=== PATIENT | female | born 1955 | race Caucasian/White ===

== ENCOUNTER 2017-11-21 09:16 | Day surgery (SDC) | payer OTHER ==
[~2017-11-21 09:16] MED LIST: LIDO GARGLE 30 ML BOTTLE ONE
[2017-11-21] MEDS: LACTATED RINGERS 1,000 ML IV ONE ×2 (09:51→12:16)
[2017-11-21] MEDS ORDERED: fentaNYL 250 MCG/5 ML VIAL IVP ONE (10:35)
[2017-11-21] MEDS ORDERED: MIDAZOLAM 2 MG/2 ML VIAL IVP ONE (10:35)
[2017-11-21] MEDS: LIDO GARGLE 30 ML BOTTLE TOP ONE (10:40)
[2017-11-21] MEDS: ONDANSETRON 4 MG/2 ML VIAL ONE (12:16)
[2017-11-21 13:43] VITALS: BP 114/78
== END 2017-11-21 09:17 | disposition home or self-care (01) ==
LOC: SDS 09:16
PROVIDERS: ATTEND Surgery
PROC: 0DB78ZX Excision of Stomach, Pylorus, Via Natural or Artificial Opening Endoscopic, Diagnostic (ICD-10-PCS; 2017-11-21)
PROC: 0DB38ZX Excision of Lower Esophagus, Via Natural or Artificial Opening Endoscopic, Diagnostic (ICD-10-PCS; 2017-11-21)
PROC: 0DBN8ZX Excision of Sigmoid Colon, Via Natural or Artificial Opening Endoscopic, Diagnostic (ICD-10-PCS; principal; 2017-11-21 10:30)
PROC: 0DB98ZX Excision of Duodenum, Via Natural or Artificial Opening Endoscopic, Diagnostic (ICD-10-PCS; 2017-11-21 10:30)
DX: R14.0 Abdominal distension (gaseous) (principal); D12.5 Benign neoplasm of sigmoid colon; K29.70 Gastritis, unspecified, without bleeding; K22.9 Disease of esophagus, unspecified; Z87.891 Personal history of nicotine dependence; Z80.0 Family history of malignant neoplasm of digestive organs
CPT/HCPCS: 43239; 45384; A9270; J3010; J7120; 88305

== ENCOUNTER 2021-11-11 11:16 | Outpatient (CLI) | payer OTHER ==
[2021-11-11 13:58] LABS: BASOPHILS % (AUTO) 0.4 %; EOSINOPHILS # (AUTO) 0.2 10^3/uL (0.0-0.7); EOSINOPHILS % (AUTO) 3.3 %; HCT - HEMATOCRIT 41.5 % (37.0-47.0); HGB - HEMOGLOBIN 14.3 g/dL (12.0-16.0); LYMPHOCYTES # (AUTO) 0.5 10^3/uL (1.5-3.5); LYMPHOCYTES % (AUTO) 10.9 %; MEAN CORPUSCULAR HEMOGLOBIN 33.7 pg (27.0-31.0); MEAN CORPUSCULAR HGB CONC 34.5 g/dL (32.0-36.0); MEAN CORPUSCULAR VOLUME 97.9 fL (81.0-99.0); MEAN PLATELET VOLUME 9.9 fL (7.9-10.8); MONOCYTES # (AUTO) 0.3 10^3/uL (0.0-1.0); MONOCYTES % (AUTO) 6.6 %; NEUTROPHILS # (AUTO) 3.6 10^3/uL (1.5-6.6); NEUTROPHILS % (AUTO) 78.6 %; PLT - PLATELET COUNT 222 10^3/uL (130-450); RED BLOOD COUNT 4.24 10^6/uL (4.20-5.40); WHITE BLOOD COUNT 4.6 x10^3/uL (4.8-10.8)
[2021-11-11 15:01] LABS: ALBUMIN 4.4 g/dL (3.2-5.5); ALBUMIN/GLOBULIN RATIO 1.6 (1.0-2.2); BILIRUBIN,TOTAL 0.8 mg/dL (0.2-1.0); CALCIUM 9.9 mg/dL (8.5-10.3); CREATININE 0.9 mg/dL (0.4-1.0); POTASSIUM 3.8 mmol/L (3.5-5.0); TOTAL PROTEIN 7.2 g/dL (6.7-8.2)
[2021-11-11 15:14] LABS: THYROID STIMULATING HORMONE 2.33 uIU/mL (0.34-5.60)
== END 2021-11-11 11:17 | disposition home or self-care (01) ==
LOC: LAB.S 11:16
PROVIDERS: ATTEND Nurse Practitioner Family
DX: K58.0 Irritable bowel syndrome with diarrhea (principal); R11.0 Nausea
CPT/HCPCS: 36415; 80053; 82150; 83690; 84443; 85025

== ENCOUNTER 2022-08-20 07:00 | Outpatient (CLI) | payer OTHER ==
--- NOTE | 2022-08-20 10:59 | XRAY Report ---
PROCEDURE: Ribs Bilat w/Chest 4 View INDICATIONS: PLEURODYNIA TECHNIQUE: 3 views of the right ribs were acquired, along with a single view chest. COMPARISON: None FINDINGS: Surgical changes and devices: None. Bones and chest wall: No fractures or dislocations. No suspicious bony lesions. Overlying soft tis sues appear unremarkable. Lungs and pleura: No pleural effusions or pneumothorax. Lungs appear clear. Mediastinum: Mediastinal contours appear normal. Heart size is normal. Numerous calcified granulomas can be seen involving the spleen. IMPRESSION: No displaced rib fracture can be seen. No pneumothorax is seen. Additional findings: Numerous splenic calcified granulomas Reviewed by: Bhavin Durbin MD on 08/20/2022 9:58 AM [facility] Approved by: Bhavin Durbin MD on 08/20/2022 9:58 AM [facility] Station ID: [id number]
== END 2022-08-20 23:59 | disposition home or self-care (01) ==
LOC: DI.S 07:00
PROVIDERS: ATTEND Nurse Practitioner Family
DX: R07.81 Pleurodynia (principal)

== ENCOUNTER 2022-08-30 07:49 | Outpatient (CLI) | payer OTHER ==
--- NOTE | 2022-08-31 10:36 | Mammography Report ---
BILATERAL DIGITAL SCREENING MAMMOGRAM 3D/2D WITH EXAGGERATED CC: 08/30/2022 CLINICAL: Routine screening. Family history of breast cancer. Comparison is made to exams dated: 02/22/2019 mammogram, 01/15/2015 mammogram, and 09/26/2007 mammogram - [facility]. Both breasts are heterogeneously dense, which may obscure small masses (category c / 51-75% glandular tissue). No significant masses, calcifications, or other findings are seen in either breast. There has been no significant interval change. IMPRESSION: NEGATIVE There is no mammographic evidence of malignancy. A 1 year screening mammogram is recommended. Based on the Tyrer Cuzick model (a risk assessment model) the patients lifetime risk is 7.6% and her 10 year risk is 3.5%. According to the ACR, ACS, and NCCN guidelines, an annual breast MRI exam giovany g with mammogram is recommended if the patients lifetime risk is 20% or greater. This exam was interpreted at Station ID: [id number]. NOTE: For mammograms, a report in lay terms will be sent to the patient. Approximately 15% of breast malignancies will not be visualized mammographically. In the management of a palpable breast mass, a negative mammogram must not discourage biopsy of a clinically suspicious lesion. Electronically Signed By: Adam butler/rima:08/30/2022 17:26:03 letter sent: No_Letter ACR BI-RADS Category 1: Negative 3341F PARENCHYMAL PATTERN: (D) - The breast(s) demonstrate(s) heterogeneously dense fibroglandular genesis rowell. BI-RADS CATEGORY: (1) - 1 Mammogram [id number] 1 year screening LATERALITY: (B)
== END 2022-08-30 07:50 | disposition home or self-care (01) ==
LOC: DI.S 07:49
DX: Z12.31 Encounter for screening mammogram for malignant neoplasm of breast (principal); Z80.3 Family history of malignant neoplasm of breast

== ENCOUNTER 2023-04-27 14:38 | Outpatient (CLI) | payer MEDICARE, BC ==
--- NOTE | 2023-04-27 17:53 | XRAY Report ---
PROCEDURE: Finger(s) RT INDICATIONS: FINGERNAIL INJURY TECHNIQUE: AP hand, 2 views of the finger(s) acquired. COMPARISON: None. FINDINGS: Bones: No fractures or dislocations. No suspicious bony lesions. Soft tissues: No suspicious soft tissue calcifications or masses. IMPRESSION: No acute bony abnormality. Reviewed by: Howie Castañeda on 04/27/2023 4:[address] [facility] Approved by: Howie Castañeda on 04/27/2023 4:[address] [facility] Station ID: [id number]
== END 2023-04-27 14:39 | disposition home or self-care (01) ==
LOC: DI.S 14:38
PROVIDERS: ATTEND Nurse Practitioner Family
DX: L60.8 Other nail disorders (principal)

== ENCOUNTER 2023-09-12 08:00 | Outpatient (CLI) | payer BC, MEDICARE ==
--- NOTE | 2023-09-12 17:42 | XRAY Report ---
PROCEDURE: Knee 3V RT INDICATIONS: SPRAIN OF RIGHT KNEE TECHNIQUE: 3 views of the knee(s) were acquired. COMPARISON: None. FINDINGS: Bones: No fractures or dislocations. No suspicious bony lesions. Mild degenerative joint disease. Q uestion chondrocalcinosis. Soft tissues: No significant knee joint effusion. No suspicious soft tissue calcifications or masses . IMPRESSION: 1. No acute bony abnormality. 2. Mild degenerative joint disease. 2. Question chondrocalcinosis. Reviewed by: Meño Garcia MD on 09/12/2023 5:41 PM PDT Approved by: Meño Garcia MD on 09/12/2023 5:41 PM PDT Station ID: [id number]
== END 2023-09-12 23:59 | disposition home or self-care (01) ==
LOC: DI.S 08:00
PROVIDERS: ATTEND Physician Assistant Medical
DX: M17.11 Unilateral primary osteoarthritis, right knee (principal)

== ENCOUNTER 2024-01-12 09:40 | Outpatient (CLI) | payer MEDICARE ==
--- NOTE | 2024-01-12 16:03 | DEXA Report ---
PROCEDURE: Dexa Spine and/or Hip INDICATIONS: POST MENOPAUSAL TECHNIQUE: Dual energy x-ray absorptiometry (DXA) was performed on a [employer] System. Regions measur ed are the AP Spine, femoral neck, and if needed forearm. COMPARISON: None FINDINGS: Lumbar Spine: Bone Mineral Density: 1.016 g/cm/cm,T score: -1.3. Left Femoral Neck: Bone Mineral Density: 0.742 g/cm/cm, T score: -2.1. Left Hip: Bone Mineral Density: 0.726 g/cm/cm,T score: -2.2. FRAX risk factors: 10 year risk of major osteoporotic fracture: 31.9% major osteoporotic fracture = hip, clinical vertebral, proximal humerus, distal forearm 10 year risk of hip fracture: 4.2% (T score greater or equal to -1.0: NORMAL) (T score from -1.1 to -2.4: OSTEOPENIA) (T score less than or equal to -2.5 to: OSTEOPOROSIS) Impression: By WHO criteria, this patient has low bone density (osteopenia). Patients with diagnosis of osteoporosis or osteopenia should have regular bone mineral density assess ment. For those eligible for Medicare, routine testing is allowed once every 2 years. Testing frequ ency can be increased for patients who have rapidly progressing disease or for those who are receivin g medical therapy to restore bone mass. Reviewed by: Nabil Monique MD on 01/12/2024 4:02 PM PDT Approved by: Nabil Monique MD on 01/12/2024 4:02 PM PDT Station ID: [id number]
== END 2024-01-12 09:41 | disposition home or self-care (01) ==
LOC: DI 09:40
PROVIDERS: ATTEND Nurse Practitioner Family
DX: Z78.0 Asymptomatic menopausal state (principal); M85.80 Other specified disorders of bone density and structure, unspecified site

== ENCOUNTER 2024-02-10 14:11 | Outpatient (CLI) | payer MEDICARE ==
--- NOTE | 2024-02-11 07:11 | XRAY Report ---
PROCEDURE: Foot 3+V RT INDICATIONS: XRAY R FOOT TECHNIQUE: 3 views of the foot were acquired. COMPARISON: None. FINDINGS: Moderate hallux valgus with lateralization of the hallux sesamoids. Mild hallux intersesamoid and 1st MTP osteoarthritis. Scattered midfoot osteoarthritis. The Lisfranc interval is preserved on the nonw eightbearing view. No fracture or dislocation. Diffuse osseous demineralization. IMPRESSION: 1.No fracture or dislocation of the right foot. 2.Scattered midfoot and 1st digit osteoarthritis. Reviewed by: Brandt Conley MD on 02/11/2024 7:10 AM PDT Approved by: Brandt Conley MD on 02/11/2024 7:10 AM PDT Station ID: [id number]
== END 2024-02-10 14:12 | disposition home or self-care (01) ==
LOC: DI.S 14:11
PROVIDERS: ATTEND Nurse Practitioner Family
DX: M19.071 Primary osteoarthritis, right ankle and foot (principal)